=== PATIENT | female | born 1970 | race Hispanic/Latino ===

== ENCOUNTER 2021-02-14 14:48 | Emergency (ER) | payer SELFPAY ==
[~2021-02-14] VITALS: Ht 157.5 cm; Wt 56.7 kg
[2021-02-14] MEDS ORDERED: DEXAMETHASONE SOD PHOS 10 MG/1 ML VIAL IV ONE (15:45)
[2021-02-14] MEDS ORDERED: SODIUM CHLORIDE 0.9% 1000ML 1,000 ML IV SCH (15:45)
[2021-02-14] MEDS ORDERED: METOCLOPRAMIDE HCL 10 MG/2ML VIAL IV ONE (15:45)
[2021-02-14] MEDS ORDERED: DIPHENHYDRAMINE HCL INJ 50 MG/ML VIAL IV ONE (15:45)
[2021-02-14] MEDS ORDERED: KETOROLAC TROMETHAMINE 30 MG/ML VIAL IV STA (16:45)
[2021-02-14] MEDS ORDERED: FIORICET 50-301 EACH PO (17:10)
[2021-02-14] MEDS ORDERED: CYCLOBENZAPRINE10 MG PO (17:12)
[2021-02-14] MEDS ORDERED: MEDROL4 MG PO (17:13)
== END 2021-02-14 17:28 | disposition home or self-care (01) ==
LOC: FSED 15:20
DX: S00.83XA Contusion of other part of head, initial encounter (principal); M54.2 Cervicalgia; M62.830 Muscle spasm of back; M54.12 Radiculopathy, cervical region; W20.8XXA Other cause of strike by thrown, projected or falling object, initial encounter
CPT/HCPCS: 70450; 72125; 99284; J1100